=== PATIENT | female | born 1940 | race Caucasian/White ===

== ENCOUNTER 2020-05-18 10:19 | Inpatient (IN) ==
[~2020-05-18 10:19] MED LIST: ceFAZolin 1,000 MG, Sodium Chloride IRRigation 1,000 ML IR ONE
[2020-05-18] MEDS ORDERED: Ringers Solution, Lactated 1,000 ML IVC SCH (10:45)
[2020-05-18] MEDS ORDERED: Heparin 1,000 UNITS/500 mL 500 ML ONE (11:29)
[2020-05-18] MEDS ORDERED: CeFAZolin Syr 2,000MG/20 ML 2,000 MG/20 ML SYRINGE IVPB ONE (11:30)
[2020-05-18] MEDS ORDERED: Lidocaine -MPF 2% 2 ML VIAL ONE ×2 (11:33→11:42)
[2020-05-18] MEDS ORDERED: Protamine Sulfate 50 MG/5 ML VIAL IVP ONE (11:34)
[2020-05-18] MEDS ORDERED: Heparin 1,000 UNITS/500 mL 1,000 ML ONE (11:34)
[2020-05-18] MEDS ORDERED: *HR* Rocuronium Bromide 50 MG/5 ML VIAL ONE (11:42)
[2020-05-18] MEDS ORDERED: *HR* FentaNYL (PF) 100 MCG/2 ML VIAL ONE (11:42)
[2020-05-18] MEDS ORDERED: Ondansetron 4 MG/2 ML VIAL ONE (11:42)
[2020-05-18] MEDS ORDERED: *HR* Propofol 200 MG/20 ML VIAL IVP ONE (11:42)
[2020-05-18] MEDS ORDERED: *HR* Succinylcholine 200 MG/10 ML VIAL IVP ONE (11:42)
[2020-05-18] MEDS ORDERED: *HR* Remifentanil 1 MG VIAL IVP ONE (11:42)
[2020-05-18] MEDS ORDERED: *HR* Heparin 5,000 UNIT/ML VIAL ONE (13:20)
[2020-05-18] MEDS ORDERED: EPHEDrine 50 MG/ML VIAL ONE (13:21)
[2020-05-18] MEDS ORDERED: Nitroglycerin 0.4 MG TAB.SUBL SL PRN (16:12)
[2020-05-18] MEDS ORDERED: *HR* Labetalol 20 MG/4 ML SYRINGE IVP PRN (16:12)
[2020-05-18] MEDS ORDERED: Ondansetron 4 MG/2 ML VIAL IVP PRN (16:12)
[2020-05-18] MEDS ORDERED: Acetaminophen 325 MG TABLET PO PRN (16:12)
[2020-05-18] MEDS ORDERED: Naloxone 0.4 MG/ML INJ IVP PRN (16:12)
[2020-05-18] MEDS: *HR* HYDROcodone/Acet 5/325 mg TABLET PO PRN (16:35)
[2020-05-19] MEDS: CeFAZolin 2 GM/120 ML BAG IVPB SCH ×2 (00:16→09:03)
[2020-05-19 04:27] LABS: Basophils % 0.2 %; Hematocrit 29.8 % (35.3-44.9); Immature Granulocytes % 0.3 % (0-4); Lymphocytes # 0.5 K/mcL (0.6-4.6); Lymphocytes % 4.6 %; Mean Corpuscular HGB Conc 33.6 g/dL (31.6-35.5); Mean Corpuscular Hemoglobin 32.5 pg (28.0-33.3); Mean Corpuscular Volume 96.8 fL (83.0-100.0); Mean Platelet Volume 10.9 fL (9.4-12.4); Monocytes # 0.4 K/mcL (0.0-1.3); Monocytes % 4.1 %; Neutrophils # 9.4 K/mcL (1.6-8.9); Platelet Count 156 K/mcL (140-400); Red Blood Count 3.08 M/mcL (3.82-4.97); Red Cell Distribution Width 12.5 % (11.5-14.5); Segmented Neutrophils % 90.8 %; White Blood Count 10.3 K/mcL (4.3-11.1)
[2020-05-19 04:46] LABS: Calcium 8.9 mg/dL (8.6-10.3); Potassium 4.6 mEq/L (3.5-5.1)
[2020-05-19 08:15] LABS: ABG Base Excess -1 mEq/L (-2 to 3); ABG HCO3 24 mEq/L (21-27); ABG Oxygen Saturation 93 % (95-98); ABG PCO2 40 mmHg (35-45); ABG PH 7.39 pH Units (7.32-7.45); ABG PO2 67 mmHg (85-104); ABG TCO2 25 mEq/L (20-26)
[2020-05-19] MEDS: Aspirin Enteric Coated 81 MG Tablet PO SCH (09:02)
[2020-05-19] MEDS: lisinopriL 5 MG TABLET PO SCH (09:02)
[2020-05-19] MEDS: Multivit/Ca/Min/Fe/FA 1 TAB TABLET PO SCH (09:02)
[2020-05-19] MEDS: (Linagliptin [Tradjenta] 5 MG) PO SCH (09:04)
[2020-05-19 11:15] LABS: VBG Ionized Calcium 1.22 mmol/L (1.15-1.35)
[2020-05-19 11:44] LABS: Troponin I < 0.03 ng/mL (< 0.04)
[2020-05-19] MEDS ORDERED: Perflutren Lipid Microsphere 1.3 ML in 0.9 % Sodium Chloride 8.7 ML IVP PRN (15:46)
[2020-05-19] MEDS: DilTIAZem CD (24hr) 120 MG CAP.ER.24H PO SCH (16:04)
[2020-05-19] MEDS: *HR* HYDROcodone/Acet 5/325 mg TABLET PO PRN (20:07)
[2020-05-20] MEDS: Aspirin Enteric Coated 81 MG Tablet PO SCH (07:49)
[2020-05-20] MEDS: DilTIAZem CD (24hr) 120 MG CAP.ER.24H PO SCH (07:49)
[2020-05-20] MEDS: Multivit/Ca/Min/Fe/FA 1 TAB TABLET PO SCH (07:50)
[2020-05-20] MEDS: lisinopriL 5 MG TABLET PO SCH (07:50)
[2020-05-20] MEDS: (Linagliptin [Tradjenta] 5 MG) PO SCH (07:53)
[2020-05-20 12:20] VITALS: BP 125/49
== END 2020-05-20 15:20 | disposition home or self-care (01) | DRG 39 ==
LOC: SAMDAY 10:19 → 2NNU 16:04
PROVIDERS: ADMIT Surgery Vascular Surgery; ATTEND Surgery Vascular Surgery